=== PATIENT | female | born 1950 | race Caucasian/White ===

== ENCOUNTER 2021-03-04 09:08 | Outpatient (CLI) | payer MEDICARE, OTHER, SELFPAY ==
--- NOTE | ~2021-03-04 | MM_ITS ---
EXAMINATION: MM screening [facility] BI w aicha HISTORY: Screening TECHNIQUE: Craniocaudal and mediolateral oblique 3-D tomosynthesis images were obtained and synthetic 2-D images were generated. CAD analysis was submitted and interpreted. COMPARISON: Comparison to multiple prior studies sequentially, with oldest reviewed study dated 11/03. BREAST PARENCHYMAL COMPOSITION: Breast composed of scattered areas of fibroglandular density FINDINGS: There is a mass in the lower inner quadrant of the left breast which is stable, benign. The re is no evidence of suspicious mass, calcification, or architectural distortion to suggest malignanc y in either breast. There has been no suspicious interval change. IMPRESSION: 1. No mammographic evidence of malignancy. 2. Recommend routine screening mammography in one year. BI-RADS Category 2: Benign finding(s). Reviewed, dictated and finalized at location A. GER SIGN
== END 2021-03-04 09:09 | disposition home or self-care (01) ==
LOC: ANHIMG 09:11
PROVIDERS: PCP Family Medicine; Visit Provider Family Medicine
DX: Z12.31 Encounter for screening mammogram for malignant neoplasm of breast (principal)
CPT/HCPCS: 77063; 77067

== ENCOUNTER 2021-05-05 09:39 | Outpatient (CLI) | payer MEDICARE, OTHER, SELFPAY ==
--- NOTE | ~2021-05-05 | DEXA_ITS ---
Bone Density Report Name: YUSUF CHRISTOPHER Age: 71 Sex: Female Ethnicity: White Date of : 1950 Indication: osteopenia; parental hip fracture; height loss; hysterectomy; postmenopausal Referring Provider: PALOMO, RADHA Villela Study: Bone densitometry was performed. Exam Date: May 05, 2021 Accession number: [id number] Bone Density: Region BMD T-score Z-score Classification AP Spine (L1-L4) 0.827 -2.0 0.1 Osteopenia Femoral Neck (Left) 0.577 -2.5 -0.7 Osteoporosis Total Hip (Left) 0.786 -1.3 0.2 Osteopenia Total Hip Bilateral Avg 0.773 -1.4 0.1 Osteopenia Femoral Neck (Right) 0.590 -2.3 -0.5 Osteopenia Total Hip (Right) 0.758 -1.5 0.0 Osteopenia World Health Organization criteria for BMD impression classify patients as: Normal (T-score at or above -1.0), Osteopenia (T-score between -1.0 and -2.5), or Osteoporosis (T-score at or below -2.5). 10-year Fracture Risk: FRAX not reported because: Some T-score for Spine Total or Hip Total or Femoral Neck at or below -2.5 Previous Exams: Region Exam Age BMD T-score BMD Change BMD Change Date g/cm2 vs Baseline vs Previous AP Spine(L1-L4) 05/05/2021 71 0.827 -2.0 -0.072(-8.0%)# 0.043(5.5%)# 11/27/2014 64 0.784 -2.4 -0.115(-12.8%) -0.027(-3.3%)# 11/22/2012 62 0.811 -2.1 -0.088(-9.7%)# -0.059(-6.8%)# 10/12/2006 56 0.870 -1.6 -0.029(-3.2%)* -0.029(-3.2%)* 08/02/2004 54 0.899 -1.3 Total Hip(Left) 05/05/2021 71 0.786 -1.3 0.042(5.6%)# -0.033(-4.1%)# 11/27/2014 64 0.820 -1.0 0.075(10.1%)# 0.017(2.1%)# 11/22/2012 62 0.803 -1.1 0.059(7.9%)# 0.044(5.8%)# 10/12/2006 56 0.759 -1.5 0.015(2.0%) 0.015(2.0%) 08/02/2004 54 0.744 -1.6 Total Hip(Right) 05/05/2021 71 0.758 -1.5 0.001(0.2%)# -0.100(-11.7%) 11/27/2014 64 0.858 -0.7 0.101(13.4%)# 0.054(6.7%)# 11/22/2012 62 0.804 -1.1 0.047(6.3%)# 0.032(4.2%)# 10/12/2006 56 0.771 -1.4 0.015(2.0%) 0.015(2.0%) 08/02/2004 54 0.756 -1.5 *Denotes significance at 95% confidence level, LSC for AP Spine = 0.022 g/cm2, LSC for Total Hip = 0.027 g/cm2 Clinical Information Provided by Patient: Parent has had a hip fracture Has used the following medications: Vitamin D Has the following medical conditions: Hysterectomy Patient maximum height was 65 Menopause Age: 32 Drinks caffeinated beverages Onset of menses at age 14 Number of children 2 Impression: The kayla
== END 2021-05-05 09:40 | disposition home or self-care (01) ==
LOC: ANHIMG 09:42
PROVIDERS: PCP Family Medicine; Visit Provider Family Medicine
DX: M81.0 Age-related osteoporosis without current pathological fracture (principal); M85.88 Other specified disorders of bone density and structure, other site; M85.852 Other specified disorders of bone density and structure, left thigh; M85.851 Other specified disorders of bone density and structure, right thigh
CPT/HCPCS: 77080

== ENCOUNTER 2022-06-05 09:01 | Outpatient (CLI) | payer MEDICARE, OTHER, SELFPAY ==
--- NOTE | ~2022-06-05 | MM_ITS ---
EXAMINATION: MM screening [facility] BI w aicha HISTORY: Screening mammogram TECHNIQUE: Craniocaudal and mediolateral oblique 3-D tomosynthesis images were obtained and synthetic 2-D images were generated. CAD analysis was submitted and interpreted. COMPARISON: 03/04/2021, 10/20/2018, 09/22/2017 bilateral screening mammogram examinations BREAST PARENCHYMAL COMPOSITION: There are scattered areas of fibroglandular density. FINDINGS: Stable up to approximately 7-8 mm lower inner quadrant left breast circumscribed mass since 09/22/2017. There is no evidence of suspicious mass, calcification, or architectural distortion to sug gest malignancy in either breast. There has been no suspicious interval change. IMPRESSION: 1. No mammographic evidence of malignancy. 2. Recommend routine screening mammography in one year. BI-RADS Category 2: Benign finding(s). Reviewed, dictated and finalized at location A.
== END 2022-06-05 09:02 | disposition home or self-care (01) ==
LOC: ANHIMG 09:04
PROVIDERS: PCP Family Medicine; Visit Provider Family Medicine
DX: Z12.31 Encounter for screening mammogram for malignant neoplasm of breast (principal)
CPT/HCPCS: 77063; 77067

== ENCOUNTER 2023-06-08 09:29 | Outpatient (CLI) | payer MEDICARE, OTHER, SELFPAY ==
--- NOTE | ~2023-06-08 | MM_ITS ---
EXAMINATION: MM screening [facility] BI w aicha HISTORY: Screening TECHNIQUE: Craniocaudal and mediolateral oblique 3-D tomosynthesis images were obtained and synthetic 2-D images were generated. CAD analysis was submitted and interpreted. COMPARISON: Comparison to multiple prior studies sequentially, with oldest reviewed study dated 10/20. BREAST PARENCHYMAL COMPOSITION: Not dense: There are scattered areas of fibroglandular density. FINDINGS: Stable benign-appearing mass lower inner quadrant of the left breast, likely a lymph node. There is no evidence of suspicious mass, calcification, or architectural distortion to suggest malign alicia in either breast. There has been no suspicious interval change. IMPRESSION: 1. No mammographic evidence of malignancy. 2. Recommend routine screening mammography in one year. BI-RADS Category 2: Benign finding(s). Reviewed, dictated and finalized at location B.
== END 2023-06-08 09:30 | disposition home or self-care (01) ==
PROVIDERS: PCP Family Medicine; Visit Provider Family Medicine
DX: Z12.31 Encounter for screening mammogram for malignant neoplasm of breast (principal)
CPT/HCPCS: 77063; 77067

== ENCOUNTER 2023-08-20 07:25 | Outpatient (CLI) | payer MEDICARE, OTHER, SELFPAY ==
--- NOTE | ~2023-08-20 | DEXA_ITS ---
Bone Density Report Name: YUSUF CHRISTOPHER Age: 73 Sex: Female Ethnicity: White Date of : 1950 Indication: postmenopausal; screening for osteoporosis; parental hip fracture; height loss; hysterectomy; Referring Provider: PALOMO, RADAH Villela Study: Bone densitometry was performed. Exam Date: August 20, 2023 Accession number: [id number] Bone Density: Region BMD T-score Z-score Classification AP Spine(L1-L4) 0.764 -2.6 -0.3 Osteoporosis Femoral Neck (Left) 0.537 -2.8 -0.9 Osteoporosis Total Hip (Left) 0.739 -1.7 0.0 Osteopenia Femoral Neck (Right) 0.600 -2.2 -0.3 Osteopenia Total Hip (Right) 0.773 -1.4 0.2 Osteopenia Total Hip Mean 0.756 -1.6 0.1 Osteopenia World Health Organization criteria for BMD impression classify patients as: Normal (T-score at or above -1.0), Osteopenia (T-score between -1.0 and -2.5), or Osteoporosis (T-score at or below -2.5). 10-year Fracture Risk: FRAX not reported because: Some T-score for Spine Total or Hip Total or Femoral Neck at or below -2.5 Clinical Information Provided by Patient: Parent has had a hip fracture Has used the following medications: Vitamin D, Calcium Has the following medical conditions: Hysterectomy Patient maximum height was 64 Menopause Age: 32 No regular weight bearing exercise Drinks caffeinated beverages Onset of menses at age 14 Number of children 2 Impression: The patient has osteoporosis, based on the Left Femoral Neck T-score. The patient has risk factors, including: parental hip fracture. Discussion: INCREASED RISK OF FRACTURE. BONE DENSITY IS UNDESIRABLY LOW AT ONE OR MORE SKELETAL SITES, CONSISTENT WITH POSTMENOPAUSAL OSTEOPOROSIS. This patient's lowest T-score meets the World Health Organization's (WHO) criteria for osteoporosis at one or more sites (T-score -2.5 or below). In untreated patients, the risk of osteoporotic fracture increases approximately two-fold for each 1.0 SD decrease in T-score. Low bone density is not the only risk factor for fracture; also consider factors such as patient's age, frailty or poor health, risk of falling, risk of injury, previous osteoporotic fracture, family history of osteoporosis, cigarette smoking, low body weight, etc. Not everyone with low bone mineral density has osteoporosis; osteomalacia and other metabolic bone disorders should also be considered. Patients who have osteoporosis should be evaluated for specific diseases and conditions (secondary causes) that may cause or contribute to bone loss. The [place] [employer]ocrinologists (AACE) and National Osteoporosis Foundation (NOF) recommend pharmacologic intervention for all postmenopausal women whose T-score is in this range. The patient should follow a healthful lifestyle (good nutrition with adequate calcium and zoraida
== END 2023-08-20 07:26 | disposition home or self-care (01) ==
PROVIDERS: PCP Family Medicine; Visit Provider Family Medicine
DX: M85.89 Other specified disorders of bone density and structure, multiple sites (principal); M81.0 Age-related osteoporosis without current pathological fracture; E56.9 Vitamin deficiency, unspecified; Z87.39 Personal history of other diseases of the musculoskeletal system and connective tissue; Z13.820 Encounter for screening for osteoporosis
CPT/HCPCS: 77080

== ENCOUNTER 2024-12-11 12:44 | Outpatient (CLI) | payer MEDICARE, OTHER, SELFPAY ==
--- NOTE | ~2024-12-11 | DEXA_ITS ---
Bone Density Report Name: YUSUF CHRISTOPHER Age: 74 Sex: Female Ethnicity: White Date of : 1950 Indication: postmenopausal osteoporosis; hyperparathyroidism; parental hip fracture; height loss; hysterectomy; Referring Provider: PALOMO, RADHA Villela Study: Bone densitometry was performed. Exam Date: December 11, 2024 Accession number: [id number] Bone Density: Region BMD T-score Z-score Classification AP Spine(L1-L4) 0.809 -2.2 0.2 Osteopenia Femoral Neck (Left) 0.538 -2.8 -0.8 Osteoporosis Total Hip (Left) 0.775 -1.4 0.3 Osteopenia Femoral Neck (Right) 0.578 -2.4 -0.4 Osteopenia Total Hip (Right) 0.753 -1.5 0.2 Osteopenia Total Hip Mean 0.764 -1.5 0.3 Osteopenia World Health Organization criteria for BMD impression classify patients as: Normal (T-score at or above -1.0), Osteopenia (T-score between -1.0 and -2.5), or Osteoporosis (T-score at or below -2.5). 10-year Fracture Risk: FRAX not reported because: Some T-score for Spine Total or Hip Total or Femoral Neck at or below -2.5 Previous Exams: Region Exam Age BMD T-score BMD Change BMD Change Date g/cm2 vs Baseline vs Previous AP Spine (L1-L4) 12/11/2024 74 0.809 -2.2 -0.002 (-0.3%) 0.045 (6.0%)* 08/20/2023 73 0.764 -2.6 -0.048 (-5.9%) -0.038 (-4.8%) 05/05/2021 71 0.802 -2.2 -0.009 (-1.1%) -0.025 (-3.0%) 05/05/2021 71 0.827 -2.0 0.016 (1.9%) 0.043 (5.5%)# 11/27/2014 64 0.784 -2.4 -0.027 (-3.3%) -0.027 (-3.3%) 11/22/2012 62 0.811 -2.1 Total Hip(Left) 12/11/2024 74 0.775 -1.4 -0.028 (-3.5%) 0.036 (4.9%)* 08/20/2023 73 0.739 -1.7 -0.064 (-8.0%) -0.047 (-6.0%) 05/05/2021 71 0.786 -1.3 -0.017 (-2.1%) -0.033 (-4.1%) 11/27/2014 64 0.820 -1.0 0.017 (2.1%)# 0.017 (2.1%)# 11/22/2012 62 0.803 -1.1 Total Hip(Right) 12/11/2024 74 0.753 -1.5 -0.051 (-6.3%) -0.020 (-2.6%) 08/20/2023 73 0.773 -1.4 -0.031 (-3.8%) 0.015 (2.0%)# 05/05/2021 71 0.758 -1.5 -0.046 (-5.7%) -0.100 (-11.7% 11/27/2014 64 0.858 -0.7 0.054 (6.7%)# 0.054 (6.7%)# 11/22/2012 62 0.804 -1.1 *Denotes significance at 95% confidence level, LSC for AP Spine = 0.022 g/cm2, LSC for Total Hip = 0.027 g/cm2 # Denotes dissimilar scan types or analysis methods Clinical Information Provided by Patient: Parent has had a hip fracture Has used the following medications: Vitamin D, Calcium Has the following medical conditions: Hyperparathyroidism, Hysterectomy Patient maximum height was 64 Menopause Age: 32 No regular weight bearing exercise Drinks caffeinated beverages Onset of menses at age 14 Number of children 2 Impression: The patient has osteoporosis, based on the Left Femoral Neck T-score. The patient has risk factors, including: parental hip fracture. No significant bone loss was observed. Discussion: INCREASED RISK OF FRACTURE. BONE DENSITY IS UNDESIRABLY LOW AT ONE OR MORE SKELETAL SITES, CONSISTENT WITH POSTMENOPAUSAL OSTEOPOROSIS. This patient's lowest T-score meets the World Health Organization's (WHO) criteria for osteoporosis at one or more sites (T-score -2.5 or below). In untreated patients, the risk of osteoporotic fracture increases approximately two-fold for each 1.0 SD decrease in T-score. Low bone density is not the only risk factor for fracture; also consider factors such as patient's age, frailty or poor health, risk of falling, risk of injury, previous osteoporotic fracture, family history of osteoporosis, cigarette smoking, low body weight, etc. Not everyone with low bone mineral density has osteoporosis; osteomalacia and other metabolic bone disorders should also be considered. Patients who have osteoporosis should be evaluated for specific diseases and conditions (secondary causes) that may cause or contribute to bone loss. The [place] [employer]ocrinologists (AACE) and National Osteoporosis Foundation (NOF) recommend pharmacologic intervention for all postmenopausal women whose T-score is in this range. The patient should follow a healthful lifestyle (good nutrition with adequate calcium and vitamin D, and appropriate weight-bearing exercise). Follow-Up: Consider a repeat BMD and Vertebral Fracture Assessment (VFA) exam in 2 years or sooner if medically necessary, to reassess this patient's status. Reported by: ELA on 12/11/2024 1:30:00 PM. Reviewed, dictated and finalized at location A.
== END 2024-12-11 12:45 | disposition home or self-care (01) ==
PROVIDERS: PCP Family Medicine; Visit Provider Family Medicine
DX: E21.0 Primary hyperparathyroidism (principal); E55.9 Vitamin D deficiency, unspecified; M85.88 Other specified disorders of bone density and structure, other site; M81.0 Age-related osteoporosis without current pathological fracture; M85.852 Other specified disorders of bone density and structure, left thigh; M85.851 Other specified disorders of bone density and structure, right thigh
CPT/HCPCS: 77080

== ENCOUNTER 2025-01-09 07:24 | Outpatient (CLI) | payer MEDICARE, OTHER, SELFPAY ==
--- NOTE | ~2025-01-09 | MM_ITS ---
EXAMINATION: MM screening [facility] BI w aicha HISTORY: Screening TECHNIQUE: Craniocaudal and mediolateral oblique 3-D tomosynthesis images were obtained and synthetic 2-D images were generated. CAD analysis was submitted and interpreted. COMPARISON: Comparison to multiple prior studies sequentially, with oldest reviewed study dated 07/02/2016. BREAST PARENCHYMAL COMPOSITION: Not Dense: The breasts are almost entirely fatty. FINDINGS: Stable benign-appearing low-density mass lower inner quadrant of the left breast, middle third. There is no evidence of suspicious mass, calcification, or architectural distortion to suggest malignancy in either breast. There has been no suspicious interval change. IMPRESSION: 1. No mammographic evidence of malignancy. 2. Recommend routine screening mammography in one year. BI-RADS Category 2: Benign finding(s). Reviewed, dictated and finalized at location O. LE HELPER
== END 2025-01-09 07:25 | disposition home or self-care (01) ==
PROVIDERS: PCP Family Medicine; Visit Provider Family Medicine
DX: Z12.31 Encounter for screening mammogram for malignant neoplasm of breast (principal)
CPT/HCPCS: 77063; 77067